=== PATIENT | female | born 1965 | race Native Hawaiian/Other Pacific Islander ===

== ENCOUNTER 2022-05-17 01:36 | Emergency (ER) | payer OTHER ==
[~2022-05-17] VITALS: Ht 167.6 cm; Wt 132.9 kg
[2022-05-17 01:40] VITALS: BP 135/79; TEMP 98.9
[2022-05-17 02:28] LABS: PLATELET COUNT 126 K/uL (152-353)
[2022-05-17 02:46] LABS: POTASSIUM 3.8 mmol/L (3.6-5.2)
[2022-05-17] MEDS ORDERED: BUPROPION HCL ER PO (09:19)
[2022-05-17] MEDS ORDERED: CLOZ100T PO (09:20)
[2022-05-17] MEDS ORDERED: BISACODYL5 M1 PO ×2 (09:21→09:26)
[2022-05-17] MEDS ORDERED: METO25TA2 PO (09:21)
[2022-05-17] MEDS ORDERED: MIRALAX17 GM/SCOO PO (09:22)
[2022-05-17] MEDS ORDERED: TRAZ50TA36 PO (09:23)
[2022-05-17] MEDS ORDERED: SERT100T PO (09:23)
[2022-05-17] MEDS ORDERED: DOCU100C10 PO (09:24)
[2022-05-17] MEDS ORDERED: LEVE500T5 PO (09:25)
[2022-05-17] MEDS ORDERED: HYDR25CA25 PO (09:27)
== END 2022-05-17 04:20 | disposition still patient (30) ==
LOC: ED 01:36
PROVIDERS: Emergency Medicine
DX: R46.89 Other symptoms and signs involving appearance and behavior (principal); F20.89 Other schizophrenia; Z11.52 Encounter for screening for COVID-19; Z04.6 Encounter for general psychiatric examination, requested by authority
CPT/HCPCS: 36415; 80053; 85027; 87635; 93005; 99283; U0003